=== PATIENT | male | born 1960 | race Caucasian/White ===

== ENCOUNTER 2018-05-25 12:18 | Emergency (ER) | payer SELFPAY ==
[2018-05-25] MEDS ORDERED: FENTANYL CITRATE INJ/PF 100 MCG/2 ML AMPUL ONE (12:38)
[2018-05-25 12:45] LABS: ABSOLUTE BASOPHILS # (AUTO) 0.1 10^3/uL (0.0-0.2); ABSOLUTE EOSINOPHILS # (AUTO) 0.1 10^3/uL (0.0-0.6); ABSOLUTE LYMPHOCYTES (AUTO) 1.2 10^3/uL (0.5-4.7); ABSOLUTE MONOCYTES (AUTO) 0.8 10^3/uL (0.1-1.4); ABSOLUTE NEUT (AUTO) 4.9 10^3/uL (1.7-8.2); BASOPHILS % (AUTO) 1.1 % (0-2); EOSINOPHILS % (AUTO) 0.9 % (0-6); HEMATOCRIT 31.6 % (37.9-51.0); HEMOGLOBIN 10.4 g/dL (13.5-17.0); LYMPHOCYTES % (AUTO) 17.2 % (13-45); MEAN CORPUSCULAR HEMOGLOBIN 25.9 pg (27.0-33.4); MEAN CORPUSCULAR HGB CONC 32.9 g/dL (32.0-36.0); MEAN CORPUSCULAR VOLUME 79 fl (80-97); MONOCYTES % (AUTO) 10.7 % (3-13); PLATELET COUNT 331 10^3/uL (150-450); RED CELL DISTRIBUTION WIDTH 17.3 % (11.5-14.0); SEGMENTED NEUTROPHILS % (AUTO) 70.1 % (42-78); TOTAL CELLS COUNTED % (AUTO) 100 %
[2018-05-25] MEDS ORDERED: HEPARIN SODIUM,PORCINE/D5W 25,000 UNIT/250 ML RTUINJ IV PRN ×2 (12:47→13:03)
[2018-05-25] MEDS ORDERED: HEPARIN SOD (PORCINE) 1,000 UNIT/ML 10 ML VIAL IV ONE (12:47)
[2018-05-25] MEDS ORDERED: HEPARIN SODIUM,PORCINE/D5W 25,000 UNIT/250 ML RTUINJ IV ONE (12:50)
[2018-05-25 12:55] LABS: ALANINE AMINOTRANSFERASE 20 U/L (21-72); ALBUMIN 4.3 g/dL (3.5-5.0); ALKALINE PHOSPHATASE 90 U/L (38-126); ANION GAP 14 (5-19); ASPARTATE AMINO TRANSFERASE 24 U/L (17-59); BILIRUBIN,DIRECT 0.3 mg/dL (0.0-0.4); BILIRUBIN,TOTAL 0.4 mg/dL (0.2-1.3); BLOOD UREA NITROGEN 8 mg/dL (7-20); CALCIUM 10.4 mg/dL (8.4-10.2); CARBON DIOXIDE 25 mmol/L (22-30); CHLORIDE 99 mmol/L (98-107); CREATINE KINASE 116 U/L (55-170); GLUCOSE 116 mg/dL (75-110); POTASSIUM 3.7 mmol/L (3.6-5.0); SODIUM 137.5 mmol/L (137-145); TOTAL PROTEIN 7.6 g/dL (6.3-8.2)
[2018-05-25] MEDS ORDERED: HEPARIN SOD (PORCINE) 1,000 UNIT/ML 10 ML VIAL ONE (12:55)
[2018-05-25] MEDS ORDERED: CLOPIDOGREL BISULFATE 300 MG TABLET PO ONE (13:03)
[2018-05-25 13:07] LABS: CREATINE KINASE MB 3.96 ng/mL (<4.55)
--- NOTE | 2018-05-25 13:10 | ER Document Report ---
ED Cardiac - General Chief Complaint: Chest Pain Stated Complaint: CHEST PAIN Mode of Arrival: Ambulatory TRAVEL OUTSIDE OF THE [place] IN LAST 30 DAYS: No - HPI Patient complains to provider of: Chest pain - This 57-year-old man presented from triage emergently for concern of STEMI. He has been having 2 weeks of worsening exertional chest pain as well as nausea and chest tightness which progressed today while walking to the grocery store with his parents to point which thought he might pass out. He denies any loss of consciousness, abdominal pain diarrhea constipation dysuria or recent illnesses except for his chest pain he has not seen a doctor in many years and does not know of any health problems which he has. - Related Data Allergies/Adverse Reactions: No Known Allergies Allergy (Verified 05/25/18 12:19) Past Medical History - General Information source: Patient - Social History Smoking Status: Current Every Day Smoker Family History: None Patient has suicidal ideation: No Patient has homicidal ideation: No Renal/ Medical History: Denies: Hx Peritoneal Dialysis Review of Systems - Review of Systems -: Yes All other systems reviewed and negative Physical Exam - Vital signs Vitals: Pulse Ox 100 05/25/18 12:30 - General General appearance: Appears well In distress: Moderate - HEENT Head: Normocephalic Eyes: Normal Conjunctiva: Normal Cornea: Normal Extraocular movements intact: Yes - Respiratory Respiratory status: No respiratory distress Chest status: Tender Breath sounds: Normal Chest palpation: Normal - Cardiovascular Rhythm: Regular Heart sounds: Normal auscultation Murmur: No - Abdominal Inspection: Normal Distension: No distension - Back Back: Normal - Extremities General upper extremity: Normal inspection General lower extremity: Normal inspection - Strong symmetric pulses in all extremities - Neurological Neuro grossly intact: Yes Cognition: Normal Orientation: AAOx4 - Psychological Associated symptoms: Normal affect Course - Re-evaluation Re-evalutation: 05/25/18 19:35 This 57-year-old man presented emergently from triage for concern of possible STEMI. On examination the patient appeared generally well but had prominent ST segment depressions with reciprocal elevations through the chest leads. Patient was immediately placed on monitor, he had EKG leads left in place. STEMI alert was activated. The patient notes that he has had hematuria spontaneously which he has been told as a result of his chronic drinking, he is uncertain whether or not he said any health problems as such believe that he is a poor candidate because of his risk of bleeding for lytic therapy at this time. Patient's initial EKG through triage was timed at 24 after the hour, a repeat was obtained 16 minutes later which demonstrated evolving changes suggestive of a STEMI. Emergent transport was activated prior to contact with front window cashier, called back and was in agreement that patient would undergo emergent catheterization. Current plan is for patient to undergo loaded with Plavix 300, initiate heparin via bolus and infusion, patient took at 325 aspirin prior to arrival will defer administration of this. Despite the possible transfer time because of this patient's propensity to bleed and is overall well appearance at this time will defer the administration of TMK. Pads were applied to the patient's chest and he was placed on a monitor well EMS was in transport. Critical care transport team subsequently placed patient on stretcher and took him via helicopter for emergent intervention via catheterization. - Vital Signs Vital signs: Temp Pulse Resp BP Pulse Ox 98.0 F 15 197/106 H 100 05/25/18 13:19 05/25/18 13:01 05/25/18 13:01 05/25/18 13:01 - Laboratory Result Diagrams: 05/25/18 12:30 05/25/18 12:30 Laboratory results interpreted by me: 05/25/18 05/25/18 12:30 12:30 RBC 4.00 L Hgb 10.4 L Hct 31.6 L MCV 79 L MCH 25.9 L RDW 17.3 H Glucose 116 H Calcium 10.4 H ALT 20 L Critical Care Note - Critical Care Note Total time excluding time spent on procedures (mins): 45 Discharge - Discharge Condition: Serious Disposition: [facility]
--- NOTE | 2018-05-25 13:13 | RADIOLOGY REPORT (SQ) ---
EXAM DESCRIPTION: CHEST SINGLE VIEW COMPLETED DATE/TIME: 05/25/2018 12:50 pm REASON FOR STUDY: er t2 chest pain COMPARISON: None. EXAM PARAMETERS: NUMBER OF VIEWS: One view. TECHNIQUE: Single frontal radiographic view of the chest acquired. RADIATION DOSE: NA LIMITATIONS: Tip of the left costophrenic angle is not included on study. FINDINGS: LUNGS AND PLEURA: Questionable trace right pleural effusion. No focal consolidation or pn eumothorax. No significant left pleural effusion. MEDIASTINUM AND HILAR STRUCTURES: No masses. Contour normal. HEART AND VASCULAR STRUCTURES: Heart normal in size. Calcifications of the aortic knob. Otherwise, normal vasculature. BONES: No acute findings. HARDWARE: None in the chest. OTHER: No other significant finding. IMPRESSION: Questionable trace right pleural effusion. Otherwise, no acute cardiopulmonary process. TECHNICAL DOCUMENTATION: JOB ID: [id number] [employer]- All Rights Reserved Reading location - IP/workstation name: [email or web address]
[2018-05-25 13:14] LABS: TROPONIN I 0.529 ng/mL
[2018-05-25 13:20] VITALS: BP 197/106
[2018-05-25] MEDS ORDERED: HEPARIN SOD (PORCINE) 1,000 UNIT/ML 10 ML VIAL IV PRN (15:48)
[2018-05-25] MEDS ORDERED: CLOPIDOGREL BISULFATE 300 MG TABLET ONE (15:49)
--- NOTE | 2018-05-25 17:15 | EKG REPORT ---
SEVERITY:- ABNORMAL ECG - SINUS RHYTHM INFEROPOSTERIOR INFARCT, ACUTE LATERAL LEADS ARE ALSO INVOLVED : Confirmed by: Santana Medina MD 25-May-2018 17:15:04
--- NOTE | 2018-05-25 17:19 | EKG REPORT ---
SEVERITY:- ABNORMAL ECG - SINUS RHYTHM INFEROPOSTERIOR INFARCT, ACUTE : Confirmed by: Santana Medina MD 25-May-2018 17:18:38
== END 2018-05-25 13:18 | disposition short-term general hospital (02) ==
LOC: ER 12:18
DX: I21.3 ST elevation (STEMI) myocardial infarction of unspecified site (principal); R11.0 Nausea; R31.9 Hematuria, unspecified; F17.200 Nicotine dependence, unspecified, uncomplicated
CPT/HCPCS: 93005; 99291; 96374; 96375; 36415; 82553; 82550; 85025; 80053; 84484; 71045; 93010; J3490; J1644; J3010

== ENCOUNTER 2018-11-24 06:09 | Emergency (ER) | payer SELFPAY ==
[2018-11-24] MEDS ORDERED: RINGERS SOLUTION,LACTATED 1,000 ML IV ONE (06:32)
[2018-11-24] MEDS ORDERED: NORMAL SALINE 1000 ML 1,000 ML IV ONE ×2 (06:38)
[2018-11-24] MEDS ORDERED: LIDOCAINE 1% INJ-PF (10 MG/ML) 30 ML SDV NEB ONE (06:39)
[2018-11-24] MEDS ORDERED: BENZONATATE 100 MG CAPSULE PO ONE (06:39)
[2018-11-24 06:42] LABS: ABSOLUTE BASOPHILS # (AUTO) 0.1 10^3/uL (0.0-0.2); ABSOLUTE EOSINOPHILS # (AUTO) 0.3 10^3/uL (0.0-0.6); ABSOLUTE LYMPHOCYTES (AUTO) 1.9 10^3/uL (0.5-4.7); ABSOLUTE MONOCYTES (AUTO) 0.6 10^3/uL (0.1-1.4); ABSOLUTE NEUT (AUTO) 6.5 10^3/uL (1.7-8.2); BASOPHILS % (AUTO) 0.6 % (0-2); EOSINOPHILS % (AUTO) 3.2 % (0-6); HEMATOCRIT 32.2 % (37.9-51.0); HEMOGLOBIN 10.6 g/dL (13.5-17.0); LYMPHOCYTES % (AUTO) 19.8 % (13-45); MEAN CORPUSCULAR HEMOGLOBIN 26.2 pg (27.0-33.4); MEAN CORPUSCULAR HGB CONC 32.9 g/dL (32.0-36.0); MEAN CORPUSCULAR VOLUME 80 fl (80-97); MONOCYTES % (AUTO) 6.7 % (3-13); PLATELET COUNT 317 10^3/uL (150-450); RED BLOOD COUNT 4.05 10^6/uL (4.35-5.55); RED CELL DISTRIBUTION WIDTH 22.2 % (11.5-14.0); SEGMENTED NEUTROPHILS % (AUTO) 69.7 % (42-78); TOTAL CELLS COUNTED % (AUTO) 100 %; WHITE BLOOD COUNT 9.4 10^3/uL (4.0-10.5)
[2018-11-24 06:49] LABS: PROTHROMBIN TIME 12.6 SEC (11.4-15.4)
[2018-11-24 06:50] LABS: PARTIAL THROMBOPLASTIN TIME 28.6 SEC (23.5-35.8)
[2018-11-24 07:03] LABS: ALANINE AMINOTRANSFERASE 12 U/L (21-72); ALBUMIN 4.8 g/dL (3.5-5.0); ALKALINE PHOSPHATASE 92 U/L (38-126); ANION GAP 15 (5-19); ASPARTATE AMINO TRANSFERASE 35 U/L (17-59); BILIRUBIN,DIRECT 0.3 mg/dL (0.0-0.4); BILIRUBIN,TOTAL 0.4 mg/dL (0.2-1.3); BLOOD UREA NITROGEN 14 mg/dL (7-20); CALCIUM 9.9 mg/dL (8.4-10.2); CARBON DIOXIDE 20 mmol/L (22-30); CHLORIDE 103 mmol/L (98-107); CREATINE KINASE 225 U/L (55-170); GLUCOSE 126 mg/dL (75-110); POTASSIUM 4.4 mmol/L (3.6-5.0); SODIUM 138.1 mmol/L (137-145); TOTAL PROTEIN 7.9 g/dL (6.3-8.2)
--- NOTE | 2018-11-24 07:06 | RADIOLOGY REPORT (SQ) ---
EXAM DESCRIPTION: XR CHEST 1 VIEW COMPLETED DATE/TME: 11/24/2018 06:32 CLINICAL HISTORY: 57 years Male, coughing up blood COMPARISON: None. NUMBER OF VIEWS/TECHNIQUE: 1/AP FINDINGS: Patchy opacity of the right upper lobe, increased lung volume, normal cardiac silhouette, and intact bony thorax. Atherosclerotic vascular disease. IMPRESSION: Patchy opacity of the right upper lobe. Differential etiologies include infectious, inflammatory, and neoplastic processes. Recommend CR/CT surveillance including at 7-12 weeks following initiation of any clinically warranted therapy.
[2018-11-24 07:15] LABS: CREATINE KINASE MB 4.15 ng/mL (<4.55)
[2018-11-24 07:17] LABS: TROPONIN I < 0.012 ng/mL
[2018-11-24] MEDS ORDERED: CEFTRIAXONE 1 GM/D5W RTU 50 ML IV ONE (07:33)
--- NOTE | 2018-11-24 07:52 | RADIOLOGY REPORT (SQ) ---
EXAM DESCRIPTION: CT CHEST ANGIOGRAPHY WITHOUT THEN WITH IV CONTRAST COMPLETED DATE/TME: 11/24/2018 06:40 CLINICAL HISTORY: 57 years Male, sob / coughing up blood Comparison: CR, same day. Technique: IV contrast. Coronal and sagittal reformat. 3d reconstruction. This exam was performed according to our departmental dose-optimization program, which includes automated exposure control, adjustment of the mA and/or kV according to patient size and/or use of iterative reconstruction technique.[facility]: Dose Right [facility]: CareDose [facility]: Dose Right [facility]: Teradose 4D [facility]: Care IT LIMITATIONS: None Findings: Moderate patchy and reticular airspace and interstitial opacities of the right upper lobe and scattered groundglass nodular opacities of both lungs, right more than left. Paraseptal emphysema. No pulmonary embolus. No right ventricular strain. Coronary arterial calcification. Atherosclerotic vascular disease. Moderate atrophy of the right kidney. Right extrarenal pelvis. Bilateral perinephric fat stranding, nonspecific. Inferior neck, axillae, mediastinum, airway, lymphatics, heart, vasculature, upper abdomen, and musculoskeleton appear otherwise unremarkable. Impression: Moderate patchy and reticular airspace and interstitial opacities of the right upper lobe and scattered groundglass nodular opacities of both lungs, right more than left. Differential etiologies include infectious, inflammatory, and neoplastic processes. Recommend CT surveillance including at 7-12 weeks following initiation of any clinically warranted therapy.
[2018-11-24] MEDS ORDERED: CEFTRIAXONE 1 GM/D5W RTU 1 GM/50 ML RTUPB IV ONE (08:25)
--- NOTE | 2018-11-24 09:37 | ER Document Report ---
ED General - General Chief Complaint: Cough Stated Complaint: COUGH Time Seen by Provider: 11/24/18 06:26 TRAVEL OUTSIDE OF THE [place] IN LAST 30 DAYS: No - HPI Patient complains to provider of: Hemoptysis Notes: Patient coming in for evaluation of hemoptysis states started approximately 10 to 11:00 last night. Patient does have a history of CAD with stent placement in May 2018. Patient states he is on blood thinners but this time is unaware of what medications he is currently on states workup coughing up blood patient currently has a cough you can full of blood approximate 100 cc. Patient denies any incarceration denies any recent travel outside the country patient states he is to be a chronic alcoholic however has "we will wean this down". - Related Data Allergies/Adverse Reactions: No Known Allergies Allergy (Verified 11/24/18 06:57) Past Medical History - Social History Smoking Status: Current Every Day Smoker Family History: None Patient has suicidal ideation: No Patient has homicidal ideation: No Renal/ Medical History: Denies: Hx Peritoneal Dialysis Past Surgical History: Reports: Hx Cardiac Catheterization - stents, Hx Cholecystectomy Review of Systems - Review of Systems Constitutional: No symptoms reported EENT: No symptoms reported Cardiovascular: No symptoms reported Respiratory: Hemoptysis Gastrointestinal: No symptoms reported Genitourinary: No symptoms reported Male Genitourinary: No symptoms reported Musculoskeletal: No symptoms reported Skin: No symptoms reported Hematologic/Lymphatic: No symptoms reported Neurological/Psychological: No symptoms reported -: Yes All other systems reviewed and negative Physical Exam - Vital signs Vitals: Temp Pulse Resp BP Pulse Ox 98.4 F 123 H 20 112/73 93 11/24/18 06:15 11/24/18 06:15 11/24/18 06:15 11/24/18 06:15 11/24/18 06:15 Interpretation: Normal - General General appearance: Appears well, Alert - HEENT Head: Normocephalic, Atraumatic Eyes: Normal Pupils: PERRL - Respiratory Respiratory status: No respiratory distress Chest status: Nontender Breath sounds: Rhonchi Chest palpation: Normal Notes: Coughing up blood small amount approximately 2 cc of time - Cardiovascular Rhythm: Regular Heart sounds: Normal auscultation Murmur: No - Abdominal Inspection: Normal Distension: No distension Bowel sounds: Normal Tenderness: Nontender Organomegaly: No organomegaly - Back Back: Normal, Nontender - Extremities General upper extremity: Normal inspection, Nontender, Normal color, Normal ROM, Normal temperature General lower extremity: Normal inspection, Nontender, Normal color, Normal ROM, Normal temperature, Normal weight bearing. No: Suzi's sign - Neurological Neuro grossly intact: Yes Cognition: Normal Orientation: AAOx4 Vashti Coma Scale Eye Opening: Spontaneous [place] Coma Scale Verbal: Oriented [place] Coma Scale Motor: Obeys Commands Vashti Coma Scale Total: 15 Speech: Normal Motor strength normal: LUE, RUE, LLE, RLE Sensory: Normal - Psychological Associated symptoms: Normal affect, Normal mood - Skin Skin Temperature: Warm Skin Moisture: Dry Skin Color: Normal Course - Re-evaluation Re-evalutation: 11/24/18 09:31 Patient is evaluation for his hemoptysis today shows signs of a lesion in the right upper long the patient underwent a CTA again showing lesions groundglass opacities throughout both lungs greater on the right multiple pulmonary nodules. Differential per the radiologist is inflammatory neoplastic or infectious etiology patient does not have any fevers no night sweats no weight loss no tr stormy outside of the country no incarceration patient does have a history of heavy alcohol use in the past however states that he has decreased his alcohol consumption. Patient was given a dose of Rocephin to cover for an infectious etiology of the lesion seen on the CT scan. I believe the patient having a white count of the shift in his blood cells more likely this is a neoplastic process causing the hemoptysis. Did discuss with the hospitalist here at [facility] doctor Angel. Agrees that the patient will be better served at a tertiary care facility recommended transfer that we do not have any pulmonology coverage. Discussed with Dr. Vee resident setting the patient on behalf of Dr. Lorenzana at [facility]. Agrees with assessment and plan at this time. Patient otherwise stable for ground transport. Patient will be 11/24/18 09:38 11/24/18 11:07 Patient standing with transport at bedside patient is stable for transport to tertiary care facility. - Vital Signs Vital signs: Temp Pulse Resp BP Pulse Ox 98.6 F 116 H 18 142/85 H 100 11/24/18 10:33 11/24/18 10:33 11/24/18 10:33 11/24/18 10:33 11/24/18 10:33 - Laboratory Result Diagrams: 11/24/18 06:29 11/24/18 06:29 Laboratory results interpreted by me: 11/24/18 11/24/18 06:29 06:29 RBC 4.05 L Hgb 10.6 L Hct 32.2 L MCH 26.2 L RDW 22.2 H Carbon Dioxide 20 L Glucose 126 H ALT 12 L Creatine Kinase 225 H Critical Care Note - Critical Care Note Total time excluding time spent on procedures (mins): 40 Comments: Multiple evaluation for patient with hemoptysis time spent evaluating patient transferred to tertiary care facility Discharge - Discharge Clinical Impression: Hemoptysis, Right upper lobe lesion in the lung, History of bladder cancer, Coronary artery disease with stents, History of chronic alcohol use Condition: Good Disposition: [facility]
[2018-11-24 10:36] VITALS: BP 142/85
--- NOTE | 2018-11-24 13:09 | EKG REPORT ---
SEVERITY:- BORDERLINE ECG - SINUS TACHYCARDIA PROBABLE LEFT ATRIAL ABNORMALITY : Confirmed by: Gilda Pruett MD 24-Nov-2018 13:08:21
== END 2018-11-24 11:09 | disposition short-term general hospital (02) ==
LOC: ER 06:09
DX: R04.2 Hemoptysis (principal); R91.1 Solitary pulmonary nodule; Z85.51 Personal history of malignant neoplasm of bladder; Z72.89 Other problems related to lifestyle; I25.10 Atherosclerotic heart disease of native coronary artery without angina pectoris; F17.200 Nicotine dependence, unspecified, uncomplicated
CPT/HCPCS: 93005; 99291; 96361; 96374; 86900; 86901; 36415; 87040; 82553; 86850; 82550; 85025; 85610; 85730; 87077; 80053; 84484; 87186; 71045; 71275; 93010; J3490; J7030; J7120; J0696